=== PATIENT | male | born 1955 | race African-American/Black ===

== ENCOUNTER 2021-03-28 14:16 | Inpatient (IN) | payer BC, MEDICAID ==
[~2021-03-28] VITALS: Ht 170.2 cm; Wt 114.3 kg
[2021-03-28 00:01] VITALS: BP 173/93
[2021-03-28] MEDS ORDERED: HYDRALAZINE HCL 50MG TABLET PO ONE (18:00)
[2021-03-28 18:24] LABS: BASOPHILS % 0.4 % (0.0-2.0); EOSINOPHILS % 2.3 % (0.0-5.0); HEMATOCRIT. 45.9 % (42.0-52.0); HEMOGLOBIN. 15.4 g/dL (14.0-18.0); LYMPHOCYTES % 25.9 % (20.0-50.0); MEAN CORPUSCULAR VOLUME 89.1 fL (80.0-94.0); MEAN PLATELET VOLUME 10.4 fl (7.4-10.4); MONOCYTES % 6.7 % (2.0-8.0); NEUTROPHILS % 64.7 % (40.0-76.0); PLATELET 211 x1000/uL (130-400); RED BLOOD CELL COUNT 5.15 mill/uL (4.7-6.1); RED CELL DISTRIBUTION WIDTH 14.1 % (11.6-14.6)
[2021-03-28 18:30] LABS: CHLORIDE 106 mEq/L (98-107)
[2021-03-28] MEDS ORDERED: HYDRALAZINE 20MG/ML VIAL IV ONE (19:15)
[2021-03-28] MEDS ORDERED: ONDANSETRON HCL 4MG/2ML INJ IV PRN (20:30)
[2021-03-28] MEDS ORDERED: IPRATROPIUM/ALBUTEROL 0.5-3(2.5)MG/3ML NEB HHN PRN (20:30)
[2021-03-28] MEDS ORDERED: ZOLPIDEM TARTRATE 5MG TABLET PO PRN (20:30)
[2021-03-28] MEDS ORDERED: CLONIDINE 0.1MG TABLET PO PRN (20:30)
[2021-03-28] MEDS ORDERED: DEXTROSE 50% WATER 50ML SYRINGE IV PRN (20:30)
[2021-03-28] MEDS ORDERED: MAGNESIUM/ALUMINUM HYDROXIDE/SIMETHICONE 30ML UDC PO PRN (20:30)
[2021-03-28] MEDS ORDERED: ACETAMINOPHEN 325MG TABLET PO PRN ×2 (20:30)
[2021-03-28] MEDS ORDERED: GUAIFENESIN 200MG/10ML SUGAR FREE UDC PO PRN (20:30)
[2021-03-28] MEDS ORDERED: DIPHENHYDRAMINE 50MG/ML VIAL IV PRN (20:30)
[2021-03-28] MEDS ORDERED: ENOXAPARIN 40MG/0.4ML SYR SUBCUT SCH (21:00)
[2021-03-28] MEDS: BLOOD SUGAR DIAGNOSTIC STRIP TEST SCH (21:42)
[2021-03-28] MEDS ORDERED: ASPIRIN 325MG EC TABLET PO NR (21:45)
[2021-03-28] MEDS: HYDRALAZINE HCL 50MG TABLET PO SCH (21:47)
[2021-03-28] MEDS: INSULIN LISPRO 100 UNITS/ML SUBCUT SCH (21:49)
[2021-03-28] MEDS: SODIUM CHLORIDE 0.9% INJ 3ML FLUSH IVF SCH (21:51)
[2021-03-28 23:10] VITALS: BP 187/96
[2021-03-28] MEDS ORDERED: BENA40TA9 PO (23:55)
[2021-03-28] MEDS ORDERED: ASPI-1497 PO (23:55)
[2021-03-28] MEDS ORDERED: INSU300I3 SQ (23:55)
[2021-03-28] MEDS ORDERED: DILT240T12 PO (23:55)
[2021-03-28] MEDS ORDERED: INSU200I SQ (23:55)
[2021-03-28] MEDS ORDERED: SEMA0.25 SQ (23:55)
[2021-03-28] MEDS ORDERED: CHLO25TA2 PO (23:55)
[2021-03-28] MEDS ORDERED: LOVA20TA2 PO (23:55)
[2021-03-29] VITALS (8 sets, daily range): BP systolic 103–178; BP diastolic 53–98
[2021-03-29] MEDS: BLOOD SUGAR DIAGNOSTIC STRIP TEST SCH ×4 (06:10→21:26)
[2021-03-29] MEDS: INSULIN LISPRO 100 UNITS/ML SUBCUT SCH ×4 (06:11→21:24)
[2021-03-29] MEDS: SODIUM CHLORIDE 0.9% INJ 3ML FLUSH IVF SCH ×3 (06:19→21:26)
[2021-03-29] MEDS: HYDRALAZINE HCL 50MG TABLET PO SCH (06:19)
[2021-03-29] MEDS: BENAZEPRIL 10MG TABLET PO SCH (08:47)
[2021-03-29] MEDS: DILTIAZEM HCL 120MG CAPSULE CD 24HR PO SCH (08:48)
[2021-03-29] MEDS: ASPIRIN 81MG EC TABLET PO SCH (08:48)
[2021-03-29] MEDS: CHLORTHALIDONE 25MG TABLET PO SCH (08:49)
[2021-03-29] MEDS ORDERED: DILTIAZEM HCL 120MG CAPSULE CD 24HR PO SCH ×2 (09:00→21:00)
[2021-03-29] MEDS ORDERED: ASPIRIN 81MG EC TABLET PO SCH (09:00)
[2021-03-29] MEDS: INSULIN GLARGINE UD 100 UNITS/ML SYR SUBCUT SCH (10:23)
[2021-03-29] MEDS: HYDRALAZINE 20MG/ML VIAL IV PRN (10:37)
[2021-03-29] MEDS: LABETALOL HCL 200MG TABLET PO SCH ×2 (12:32→21:26)
[2021-03-29] MEDS: ENOXAPARIN 30MG/0.3ML SYR SUBCUT SCH (21:25)
[2021-03-29] MEDS: ATORVASTATIN CALCIUM 20MG TABLET PO SCH (21:25)
[2021-03-30] VITALS: BP 129/75
[2021-03-30 04:00] VITALS: BP 139/76
[2021-03-30] MEDS: BLOOD SUGAR DIAGNOSTIC STRIP TEST SCH ×4 (06:20→21:34)
[2021-03-30] MEDS: INSULIN LISPRO 100 UNITS/ML SUBCUT SCH ×4 (06:26→22:09)
[2021-03-30] MEDS: SODIUM CHLORIDE 0.9% INJ 3ML FLUSH IVF SCH ×3 (06:26→22:14)
[2021-03-30 08:00] VITALS: BP 177/85
[2021-03-30] MEDS: LABETALOL HCL 200MG TABLET PO SCH ×2 (08:55→22:13)
[2021-03-30] MEDS: DILTIAZEM HCL 120MG CAPSULE CD 24HR PO SCH (08:55)
[2021-03-30] MEDS: ASPIRIN 81MG EC TABLET PO SCH (08:55)
[2021-03-30] MEDS: CHLORTHALIDONE 25MG TABLET PO SCH (08:56)
[2021-03-30] MEDS: BENAZEPRIL 10MG TABLET PO SCH (08:57)
[2021-03-30] MEDS: ENOXAPARIN 30MG/0.3ML SYR SUBCUT SCH ×2 (08:57→22:01)
[2021-03-30 09:30] LABS: BASOPHILS % 0.4 % (0.0-2.0); EOSINOPHILS % 0.8 % (0.0-5.0); HEMATOCRIT. 43.1 % (42.0-52.0); HEMOGLOBIN. 14.5 g/dL (14.0-18.0); LYMPHOCYTES % 29.5 % (20.0-50.0); MEAN CORPUSCULAR HEMOGLOBIN 29.8 pg (28.0-32.0); MEAN CORPUSCULAR VOLUME 88.8 fL (80.0-94.0); MEAN PLATELET VOLUME 10.8 fl (7.4-10.4); MONOCYTES % 7.3 % (2.0-8.0); PLATELET 218 x1000/uL (130-400); RED BLOOD CELL COUNT 4.85 mill/uL (4.7-6.1); RED CELL DISTRIBUTION WIDTH 14.4 % (11.6-14.6)
[2021-03-30] MEDS: INSULIN GLARGINE UD 100 UNITS/ML SYR SUBCUT SCH (09:47)
[2021-03-30 12:00] VITALS: BP 166/81
[2021-03-30] MEDS: HYDRALAZINE 20MG/ML VIAL IV PRN (12:41)
[2021-03-30 16:00] VITALS: BP 112/60
[2021-03-30 20:00] VITALS: BP 115/51
[2021-03-30] MEDS: HYDRALAZINE HCL 10MG TABLET PO SCH (22:13)
[2021-03-30] MEDS: ATORVASTATIN CALCIUM 20MG TABLET PO SCH (22:13)
[2021-03-31] VITALS: BP 106/60
[2021-03-31 04:00] VITALS: BP 121/65
[2021-03-31] MEDS: BLOOD SUGAR DIAGNOSTIC STRIP TEST SCH ×2 (06:10→13:04)
[2021-03-31] MEDS: INSULIN LISPRO 100 UNITS/ML SUBCUT SCH ×2 (06:29→13:10)
[2021-03-31] MEDS: SODIUM CHLORIDE 0.9% INJ 3ML FLUSH IVF SCH ×2 (06:29→14:00)
[2021-03-31 07:27] LABS: BASOPHILS % 0.3 % (0.0-2.0); EOSINOPHILS % 1.6 % (0.0-5.0); HEMOGLOBIN. 14.3 g/dL (14.0-18.0); LYMPHOCYTES % 32.1 % (20.0-50.0); MEAN CORPUSCULAR HEMOGLOBIN 30.4 pg (28.0-32.0); MEAN CORPUSCULAR VOLUME 89.4 fL (80.0-94.0); MEAN PLATELET VOLUME 10.6 fl (7.4-10.4); MONOCYTES % 8.4 % (2.0-8.0); NEUTROPHILS % 57.6 % (40.0-76.0); PLATELET 205 x1000/uL (130-400)
[2021-03-31 08:00] VITALS: BP 147/75
[2021-03-31] MEDS ORDERED: REGADENOSON 0.4 MG/5 ML IV ONE ×2 (08:30→11:24)
[2021-03-31] MEDS: CHLORTHALIDONE 25MG TABLET PO SCH (09:00)
[2021-03-31] MEDS: BENAZEPRIL 10MG TABLET PO SCH (09:58)
[2021-03-31] MEDS: HYDRALAZINE HCL 10MG TABLET PO SCH (09:59)
[2021-03-31] MEDS: LABETALOL HCL 200MG TABLET PO SCH (09:59)
[2021-03-31] MEDS: DILTIAZEM HCL 120MG CAPSULE CD 24HR PO SCH (09:59)
[2021-03-31] MEDS: ASPIRIN 81MG EC TABLET PO SCH (10:01)
[2021-03-31] MEDS: ENOXAPARIN 30MG/0.3ML SYR SUBCUT SCH (10:02)
[2021-03-31] MEDS: INSULIN GLARGINE UD 100 UNITS/ML SYR SUBCUT SCH (13:00)
[2021-03-31 15:32] VITALS: BP 147/75
== END 2021-03-31 16:25 | disposition home or self-care (01) | DRG 305 ==
LOC: ER 14:16 → 8WST 20:10 → EDBEDREQTM 20:15 → EDBEDREQ 20:15 → ENRESERV 21:44
PROVIDERS: ADMIT Internal Medicine; ATTEND Internal Medicine
DX: I16.0 Hypertensive urgency (principal); E66.01 Morbid (severe) obesity due to excess calories; E78.00 Pure hypercholesterolemia, unspecified; E11.9 Type 2 diabetes mellitus without complications; E78.5 Hyperlipidemia, unspecified; Z20.822 Contact with and (suspected) exposure to COVID-19; Z82.49 Family history of ischemic heart disease and other diseases of the circulatory system; Z83.3 Family history of diabetes mellitus; Z79.899 Other long term (current) drug therapy; Z79.82 Long term (current) use of aspirin; Z79.4 Long term (current) use of insulin; Z68.39 Body mass index [BMI] 39.0-39.9, adult
CPT/HCPCS: 36415; 71045; 78452; 80048; 80053; 80061; 82962; 83036; 83735; 83880; 84484; 85025; 87426; 93005; 93017; 93306; 99285; A9500; J0360; J1650; J1815; J2405; J2785